=== PATIENT | male | born 1960 | race Two or more races ===

== ENCOUNTER → 2017-07-08 | Outpatient (CLI) | payer SELFPAY ==
--- NOTE | 2017-07-08 15:58 | RADIOLOGY IMAGING REPORT ---
FACILITY: [facility] - [place] PATIENT NAME: Frantz Godinez : 1960 MR: [id number] V: [id number] EXAM DATE: ORDERING PHYSICIAN: [facility] TECHNOLOGIST: Location: [facility] Patient: Frantz Godinez : 1960 Visit/Account:[id number] Date of Sevice: 07/08/2017 CERVICAL SPINE W/OBL F/E Indication: Pain., Comparison: None available. Findings: The prevertebral soft tissues are within normal limits. The vertebral body heights are well maintained. Moderate degenerative disc space disease noted at C4-5 and C5-6. The remainder the disc spaces are w ell preserved. There is a grade 1 retrolisthesis of C4-5 measuring 5 mm. With flexion and extension reduced mobility is identified. Oblique views show moderate neural foraminal narrowing on the left at C4-5. IMPRESSION: 1. Moderate degenerative disc space disease at C4-5 and C5-6 as described Report Dictated By: Atilio Marin at 07/08/2017 3:49 PM Report E-Signed By: Atilio Marin at 07/08/2017 3:54 PM WSN:[id number]
--- NOTE | 2017-07-08 16:10 | RADIOLOGY IMAGING REPORT ---
FACILITY: [facility] [place] PATIENT NAME: Frantz Godinez : 1960 MR: [id number] V: [id number] EXAM DATE: ORDERING PHYSICIAN: [facility] TECHNOLOGIST: Location: [facility] Patient: Frantz Godinez : 1960 Visit/Account:[id number] Date of Sevice: 07/08/2017 LUMBAR SPINE COMP W/FLEX/EXT Indication: Back pain., Comparison: None available FINDINGS: There are 5 lumbar type vertebral bodies. There is no acute osseous or acute alignment abnormality. Moderate diffuse multilevel degenerative disc space disease is present characterized predominantly by disc space narrowing and endplate osteophyte formation. Mild 2 to 3 mm spondylolisthesis are noted at L3-4 and L4-5. Oblique view show no evidence of underlying pars defect. With flexion and extensi on reduced mobility is present. The vertebral body heights appear well-maintained. IMPRESSION: 1. Moderate diffuse multilevel degenerative disc space disease with decreased mobility on flexion an d extension. No acute abnormality is noted Report Dictated By: Atilio Marin at 07/08/2017 3:54 PM Report E-Signed By: Atilio Marin at 07/08/2017 4:06 PM WSN:[id number]
== END ==
LOC: RAD 11:05
PROVIDERS: ATTEND Chiropractor
DX: M51.36 Other intervertebral disc degeneration, lumbar region (principal); M43.16 Spondylolisthesis, lumbar region; M50.322 Other cervical disc degeneration at C5-C6 level
CPT/HCPCS: 72052; 72114